=== PATIENT | female | born 1960 | race Two or more races ===

== ENCOUNTER 2017-12-26 09:02 | Day surgery (SDC) | payer OTHER ==
[2017-12-26] MEDS ORDERED: PROPOFOL 20 ML (10:20)
[2017-12-26] MEDS ORDERED: MIDAZOLAM 1 MG/ML 2 ML INJ (10:20)
== END 2017-12-26 12:52 | disposition home or self-care (01) ==
LOC: GIL 09:02
DX: Z12.11 Encounter for screening for malignant neoplasm of colon (principal); K63.89 Other specified diseases of intestine
CPT/HCPCS: 45378